=== PATIENT | male | born 1970 | race Caucasian/White ===

== ENCOUNTER 2020-04-05 10:08 | Outpatient (REF) | payer OTHER, SELFPAY ==
[2020-04-05 11:13] LABS: MANUAL DIFF FLAG NO
[2020-04-05 11:16] LABS: Basophils Percent Auto 1.2 % (0-2); Eosinophils Absolute Auto 0.1 X10*3/uL (0.0-0.4); Eosinophils Percent Auto 2.6 % (0-4); Hematocrit 41.3 % (42-52); Hemoglobin 13.9 g/dl (14.0-18.0); Imm Gran Abs Auto 0.01 X10*3/uL (0.00-0.03); Imm Gran Pct Auto 0.3 % (0.0-0.4); Lymphocytes Absolute Auto 0.8 X10*3/uL (1.2-4.9); Mean Corpuscular HGB Conc 33.7 g/dl (31.0-36.0); Mean Corpuscular Hemoglobin 28.7 pg (27.0-33.0); Mean Corpuscular Volume 85.2 fL (80-98); Mean Platelet Volume 10.3 fL (9.4-12.4); Monocytes Absolute Auto 0.4 X10*3/uL (0.1-1.2); Monocytes Percent Auto 10.7 % (2-11); Neutrophils Absolute Auto 2.1 X10*3/uL (2.0-8.3); Neutrophils Percent Auto 61.2 % (45-73); Platelet Count 176 X10*3/uL (160-400); Red Blood Count 4.85 X10*6/uL (4.60-5.80); Red Cell Distribution Width 12.3 % (11.0-16.0); White Blood Count 3.5 X10*3/uL (4.8-10.8)
[2020-04-05 11:52] LABS: Alanine Aminotransferase 20 U/L (0-40); Albumin Level 4.4 g/dL (3.5-5.0); Alkaline Phosphatase 70 U/L (39-117); Anion Gap 11 (12-20); Aspartate Amino Transferase 20 U/L (5-37); Bilirubin Total 0.8 mg/dL (0.0-1.0); Blood Urea Nitrogen 14 mg/dL (9-16); Calcium 8.9 mg/dL (8.4-10.2); Carbon Dioxide 30 mmol/L (22-29); Chloride 103 mmol/L (96-108); Estimated Glomerular Filt Rate > 60; Glucose Fasting 93 mg/dL (60-99); Potassium 4.1 mmol/l (3.3-5.1); Sodium 140 mmol/L (135-145); Total Protein 7.2 g/dL (6.5-8.0)
[2020-04-05 12:11] LABS: Vitamin B12 538 pg/mL (200-900)
[2020-04-05 12:14] LABS: Thyroid Stimulating Hormone 0.96 mIU/mL (0.32-4.0); Vitamin D 25-OH Total 27.9 ng/mL (>30)
[2020-04-06 17:46] LABS: Lyme Abs Screen <0.90 index
[2020-04-11 07:02] LABS: Testosterone, Total 473 ng/dL (250-1100)
== END 2020-04-05 10:09 | disposition home or self-care (01) ==
LOC: HO.MANLDS 10:08
PROVIDERS: PCP Internal Medicine; Visit Provider Internal Medicine
DX: R53.83 Other fatigue (principal)
CPT/HCPCS: 36415; 80053; 82306; 82607; 84403; 84443; 85025; 86618

== ENCOUNTER 2022-01-07 14:50 | Outpatient (REF) | payer OTHER, SELFPAY ==
[2022-01-07 18:12] LABS: MANUAL DIFF FLAG NO
[2022-01-07 18:17] LABS: Basophils Percent Auto 0.9 % (0-2); Eosinophils Absolute Auto 0.1 X10*3/uL (0.0-0.4); Eosinophils Percent Auto 2.1 % (0-4); Hematocrit 38.3 % (42.0-52.0); Hemoglobin 13.3 g/dl (14.0-18.0); Imm Gran Abs Auto 0.01 X10*3/uL (0.00-0.03); Imm Gran Pct Auto 0.2 % (0.0-0.4); Lymphocytes Absolute Auto 1.3 X10*3/uL (1.2-4.9); Mean Corpuscular HGB Conc 34.7 g/dl (31.0-36.0); Mean Corpuscular Hemoglobin 28.7 pg (27.0-33.0); Mean Corpuscular Volume 82.7 fL (80.0-98.0); Mean Platelet Volume 10.6 fL (9.4-12.4); Monocytes Absolute Auto 0.5 X10*3/uL (0.1-1.2); Monocytes Percent Auto 11.3 % (2-11); Neutrophils Absolute Auto 2.4 x10*3/uL (2.0-8.3); Neutrophils Percent Auto 55.5 % (45-73); Platelet Count 167 X10*3/uL (160-400); Red Blood Count 4.63 X10*6/uL (4.60-5.80); Red Cell Distribution Width 12.4 % (11.0-16.0); White Blood Count 4.2 X10*3/uL (4.8-10.8)
[2022-01-07 18:28] LABS: Alanine Aminotransferase 14 U/L (0-40); Albumin Level 4.5 g/dL (3.5-5.0); Alkaline Phosphatase 69 U/L (39-117); Anion Gap 14 (12-20); Aspartate Amino Transferase 22 U/L (5-37); Bilirubin Total 0.5 mg/dL (0.0-1.0); Blood Urea Nitrogen 16 mg/dL (9-16); C Reactive Protein 0.06 mg/dL (< or = 0.50); Calcium 9.5 mg/dL (8.4-10.2); Carbon Dioxide 28 mmol/L (22-29); Chloride 102 mmol/L (96-108); Estimated Glomerular Filt Rate > 60; Glucose Random 92 mg/dL (60-115); Iron 53 mcg/dL (45-160); Percent Iron Saturation 16 % (15-50); Potassium 4.1 mmol/L (3.3-5.1); Sodium 140 mmol/L (135-145); Total Iron Binding Capacity 325 mcg/dL (228-428); Total Protein 7.3 g/dL (6.5-8.0); Unsaturated Iron Binding 272 ug/dL
[2022-01-07 18:48] LABS: Prostate Specific Antigen 0.54 ng/mL (<0.05-4.0); Thyroid Stimulating Hormone 0.55 uIU/mL (0.32-4.0); Vitamin D 25-OH Total 31.8 ng/mL (>30)
[2022-01-07 19:01] LABS: Folate 14.4 ng/mL (> or = 4.0); Vitamin B12 436 pg/mL (200-900)
[2022-01-07 19:02] LABS: Erythrocyte Sedimentation Rate 7 MM/HR (0-15)
[2022-01-08 05:04] LABS: ~Hepatitis B Surface Antibody NONREACTIVE (Nonreactive)
[2022-01-08 05:14] LABS: Estimated Average Glucose 105 mg/dL; Hemoglobin A1c % 5.3 %
[2022-01-14 20:42] LABS: Testosterone, Free 45.2 pg/mL (35.0-155.0); Testosterone, Total 274 ng/dL (250-1100)
== END 2022-01-07 14:51 | disposition home or self-care (01) ==
LOC: HO.MANLDS 14:50
PROVIDERS: Visit Provider Physician Assistant
DX: Z01.84 Encounter for antibody response examination (principal); Z12.5 Encounter for screening for malignant neoplasm of prostate; R53.83 Other fatigue; R79.89 Other specified abnormal findings of blood chemistry
CPT/HCPCS: 36415; 80053; 82306; 82607; 82746; 83036; 83540; 84153; 84402; 84403; 84436; 84443; 85025; 85652; 86140; 86706